=== PATIENT | male | born 1995 | race Two or more races ===

== ENCOUNTER 2024-08-19 00:30 | Emergency (ER) | payer BC, SELFPAY ==
[2024-08-19 00:31] VITALS: BP 135/84; PULSE 99; RESP 17; TEMP 36.9; O2SAT 97
--- NOTE | 2024-08-19 02:29 | PD.EDHEAD ---
ED Head Injury RME/HPI General Chief complaint: Head Injury Stated complaint: FELL, HIT HEAD Time Seen by Provider: 08/19/24 01:33 Arrival date/time: 08/19/24 00:30 28M with no significant PMH presents to ED with head lac after he rolled out of bed and hit his head. Patient has had a tetanus shot in the past 5 years. Patient denies N/V, seizures, vision changes, AMS, and LOC. Limitations: no limitations Related Data Allergies Allergy/AdvReac Type Severity Reaction Status Date / Time No Known Allergies Allergy Verified 08/19/24 00:32 Review of Systems Review of Systems Systems Reviewed: All systems reviewed, normal except as documented Constitutional Constitutional: Reports system reviewed and no additional complaints, except as documented, Denies fever(s) and Denies headache(s) ENT Ears, Nose, Mouth, and Throat: Denies disequilibrium and Denies headache(s) Cardiovascular Cardiovascular: Reports system reviewed and no additional complaints, except as documented, Denies chest pain and Denies dyspnea Respiratory Respiratory: Reports system reviewed and no additional complaints, except as documented, Denies cough and Denies dyspnea Gastrointestinal Gastrointestinal: Reports system reviewed and no additional complaints, except as documented, Denies abdominal pain, Denies nausea and Denies vomiting Integumentary/Breasts Skin/Breast: Reports as per HPI and Reports skin pain Neurologic Neurologic: Reports system reviewed and no additional complaints, except as documented, Denies confusion, Denies disequilibrium and Denies headache(s) Psychiatric Psychiatric: Denies confusion Past Medical History Social History SMOKING STATUS: Never smoker ED Exam General Limitations: Present no limitations General appearance: Present alert and in no apparent distress Expanded Head Exam Head exam physical: Present laceration (0.5 cm superficial posterior scalp) Eye Eye exam: Present normal appearance, PERRL and EOMI ENT ENT exam: Present normal exam, normal oropharynx and mucous membranes moist Neck Neck exam: Present normal inspection, full ROM and trachea midline Chest Chest inspection: Present normal inspection and symmetric chest wall rise Respiratory Respiratory exam: Present normal lung sounds bilaterally Cardiovascular Cardiovascular exam: Present regular rate, normal rhythm and normal heart sounds Abdominal Exam Abdominal exam: Present soft and normal bowel sounds Extremities Exam Extremities exam: Present normal inspection and full ROM Back Exam Back exam: Present normal inspection and full ROM Neurological Exam Neurological exam: Present alert, oriented X3 and CN II-XII intact Psychiatric Psychiatric exam: Present normal affect and normal mood Skin Skin exam: Present warm, dry, intact and normal color Course Quality Measures none Orders Category Date Time Status Wound Care NOW Care 08/19/24 01:33 Active Vital Signs Vital signs: Vital Signs Temperature 98.4 F 08/19/24 00:31 Pulse Rate 99 08/19/24 00:31 Respiratory Rate 17 08/19/24 00:31 Blood Pressure 135/84 H 08/19/24 00:31 Pulse Oximetry (%) 97 08/19/24 00:31 Oxygen Delivery Method Room Air 08/19/24 00:31 O2 at 97% on RA and WNLs Head Injury MDM Narrative MDM Narrative:: 28M with no significant PMH presents to ED with head lac after he rolled out of bed and hit his head. Patient has had a tetanus shot in the past 5 years. Patient denies N/V, seizures, vision changes, AMS, and LOC. Physical exam reveals 0.5 cm superficial lac on posterior scalp. Normal pupil response and EOM. Gait normal. Speech normal. No gross head trauma. Neck ROM intact. Patient is afebrile, calm, and alert. Wound cleaned/irrigated and bandaged. Patient left prior to receiving DC papers. Patient data External records reviewed:: [facility] previous records Clinical information provided by:: patient and parent Social determinants that could affect healthcare access:: none Patient has the following chronic illnesses:: none How is presenting disease/condition affected by chronic disease/condition?: no chronic disease Evaluation data The following diagnostics were reviewed and interpreted by me:: other (specify) (none) Lab and/or radiology exams considered but not ordered:: not ordered Interpretation Summary: n/a Medications / Prescriptions Medications or Prescriptions considered but not ordered:: not ordered Medication administrations:: n/a Consultations Consultation(s) initiated? (list below): No Diagnosis Differential diagnosis head injury: concussion without loss of consciousness, epidural hematoma, closed head injury, subarachnoid hematoma, postconcussion syndrome, subdural hematoma and other (CHI and scalp laceration) Most likely diagnosis given after review of the tests above:: CHI and scalp laceration Admission Indicated Admission indicated?: not indicated Admission Request Was there a request for admission?: No Disposition Plan Disposition Plan: other (specify) (left before paperwork) Discharge Plan Plan Patient Disposition: HOME (Self Care) Discharge Disposition comment: Stable Problem List Clinical Impression: Closed head injury, Laceration of scalp Patient/Caregiver Discharge Instructions Education Materials: ED Head Injury (Adult) Additional Instructions: Please follow-up with PCP within 24-48 hours and return immediately if symptoms worsen. For the next 24-48 hours, watch for unexplained nausea/vomiting, confusion, lethargy, not acting like yourself, and seizures. Print Language: Green[place]ic Stand Alone Forms: Patient Portal Info Letter PA/STRE[facility] [employer] REPA[employer] HELPER Supervising Physician PA/MALU Supervising Physician: Dr. Mackey
== END 2024-08-19 01:38 | disposition home or self-care (01) ==
LOC: SERX 01:44
PROVIDERS: Emergency Provider Emergency Medicine
DX: S01.01XA Laceration without foreign body of scalp, initial encounter (principal); W06.XXXA Fall from bed, initial encounter
CPT/HCPCS: 99282